=== PATIENT | female | born 1970 | race Caucasian/White ===

== ENCOUNTER → 2020-04-21 14:22 | Outpatient (BNVA) | payer OTHER, SELFPAY | PROVIDERS: PCP Physician Assistant Medical; Visit Provider Urology | DX: N39.41 Urge incontinence (principal); N39.3 Stress incontinence (female) (male) | CPT/HCPCS: 51798; 99212 ==

== ENCOUNTER → 2020-05-06 15:48 | Outpatient (BNVA) | payer OTHER, SELFPAY | PROVIDERS: PCP Physician Assistant Medical; Visit Provider Urology | DX: N39.41 Urge incontinence (principal) | CPT/HCPCS: 51798; 99212 ==

== ENCOUNTER → 2020-06-03 11:00 | Outpatient (BNVA) | payer OTHER, SELFPAY | PROVIDERS: PCP Physician Assistant Medical; Visit Provider Urology | DX: N39.41 Urge incontinence (principal); N39.3 Stress incontinence (female) (male) | CPT/HCPCS: 99212 ==

== ENCOUNTER → 2020-08-27 10:36 | Outpatient (BNVA) | payer OTHER, SELFPAY | PROVIDERS: Visit Provider Urology | DX: N39.41 Urge incontinence (principal) | CPT/HCPCS: 52000; 99212 ==